=== PATIENT | female | born 1990 | race Caucasian/White ===

== ENCOUNTER → 2017-03-30 | Outpatient (CLI) | payer BC, MEDICAID ==
[~2017-03-30] MED LIST: ACHD5005 PO; DCS100C PO; DOCU100C37 PO; DOXY1TAB3 PO; HYDR-3812 PO; HYDR250V7 IM; IBUP-1773 PO; IRON150C3 PO; Ibuprofen PO; NFR150C PO; ONDA-42 PO; ONDA4TAB8 PO; ONDA8TAB9 PO; ONDAN4ODT PO; PREN1TAB14 PO; PRM25T PO; PROC10TA PO
--- NOTE | 2017-03-30 15:49 | Diagnostic Imaging Report ---
PROCEDURE: US abdomen complete. TECHNIQUE: Multiple Real-time grayscale images were obtained over the abdomen in various projections. INDICATION: Abdominal pain. Nausea and vomiting. FINDINGS: The visualized portions of the pancreas appear unremarkable. The liver is fairly homogeneous with no focal lesion seen. The CBD is 2 mm in caliber. The gallbladder demonstrates hyperechoic foci on its wall which demonstrates no shadowing and no mobility, suggestive of polyps measuring up to 3 mm in size. The right kidney is 11 and the left kidney is 10.8 cm in length. No hydronephrosis or focal lesion in either kidney is seen. The abdominal aorta is normal in caliber. The IVC appears unremarkable. The spleen is 10.5 cm in length, not enlarged. No significant fluid collection is seen in the abdomen. The sonographic Frost sign is reportedly negative. IMPRESSION: Gallbladder polyps measuring up to 3 mm in size are seen. Dictated by: Dictated on workstation # [id number]
== END ==
LOC: RAD 14:36
PROVIDERS: ATTEND Nurse Practitioner Family
DX: K82.4 Cholesterolosis of gallbladder (principal)
CPT/HCPCS: 76700

== ENCOUNTER 2017-04-21 11:17 | Day surgery (SDC) | payer BC, MEDICAID ==
[~2017-04-21] VITALS: Ht 177.8 cm; Wt 63.0 kg
[2017-04-21 11:20] VITALS: BP 121/71
[2017-04-21] MEDS ORDERED: ceFAZolin 1 GM/NS 50 ML IVPB IV ONE ×2 (11:30)
[2017-04-21 11:45] LABS: MEAN PLATELET VOLUME 8.3 FL (7.4-10.4); RED BLOOD COUNT 4.47 10^6/uL (4.35-5.85); WHITE BLOOD COUNT 6.1 10^3/uL (4.3-11.0)
--- NOTE | 2017-04-21 11:48 | Progress Note-Pre Operative ---
Pre-Operative Progress Note H&P Reviewed The H&P was reviewed, patient examined and no changes noted. Date Seen by Provider: Apr 21, 2017 Time Seen by Provider: 11:48 Date H&P Reviewed: Apr 21, 2017 Time H&P Reviewed: 11:48 Pre-Operative Diagnosis: gallbladder polyp ANGELIQUE LEDEZMA DO Apr 21, 2017 11:48
[2017-04-21] MEDS: LACTATED RINGERS 1,000 ML IV PRN ×2 (12:19→14:00)
[2017-04-21] MEDS ORDERED: LIDOCAINE 1% INJ 20 ML (XYLOCAINE) VIAL ONE (12:25)
[2017-04-21] MEDS ORDERED: BUPIVACAINE 0.25% 30 ML (SENSORCAINE) VIAL ONE (12:25)
[2017-04-21] MEDS ORDERED: proPOfol 200 MG/20 ML (DIPRIVAN) VIAL IV ONE (12:30)
[2017-04-21] MEDS ORDERED: ROCURONIUM 50 MG/5 ML (ZEMURON) VIAL IV ONE (12:30)
[2017-04-21] MEDS ORDERED: fentaNYL INJECTION 250 MCG/5 ML AMP ONE (12:30)
[2017-04-21] MEDS ORDERED: MIDAZOLAM 2 MG/2 ML (VERSED) VIAL ONE (12:30)
[2017-04-21] MEDS ORDERED: KETOROLAC 30 MG/ML VIAL ONE (13:40)
[2017-04-21] MEDS ORDERED: GLYCOPYRROLATE 0.2 MG/ML (ROBINUL) 2 ML VIAL ONE (13:40)
[2017-04-21] MEDS ORDERED: DEXAMETHASONE 10 MG/ML (DECADRON) 1 ML VIAL ONE (13:40)
[2017-04-21] MEDS ORDERED: SEVOFLURANE (ULTANE) 15 ML INHAL SOLN ONE ×4 (13:40→14:03)
[2017-04-21] MEDS ORDERED: ONDANSETRON 4 MG/2 ML (SDV) Z0FRAN ONE ×2 (13:40→14:13)
[2017-04-21] MEDS ORDERED: NEOSTIGMINE (BLOXIVERZ ) 1 MG/1ML 10 ML VIAL ONE (13:40)
--- NOTE | 2017-04-21 13:59 | Progress Note-Post Operative ---
Post-Operative Progess Note Surgeon (s)/Glory Hole Tender (s) Surgeon ANGELIQUE LEDEZMA DO Glory Hole Tender: Dr. Avilez Pre-Operative Diagnosis gallbladder polyp Post-Operative Diagnosis same Procedure & Operative Findings Date of Procedure 04/21/17 Procedure Performed/Findings lap [place] c IOC Anesthesia Type gen Estimated Blood Loss Estimated blood loss (mL): minimal Specimens/Packing Specimens Removed gallbladder ANGELIQUE LEDEZMA DO Apr 21, 2017 13:59
[2017-04-21] MEDS ORDERED: HYDR-3812 PO (14:01)
[2017-04-21] MEDS ORDERED: DOCU-143 PO (14:01)
--- NOTE | 2017-04-21 14:03 | Discharge Inst-Simple/Standard ---
Discharge Inst-Standard Discharge Medications New, Converted or Re-Newed RX: RX on Chart Patient Instructions/Follow Up Plan of Care/Instructions/FU: 2 weeks aide Activity as Tolerated: No Discharge Diet: Regular Diet Other Inst to Patient Follow up Appt: Make appointment for 2 weeks. Instructions: No lifting greater than 10 pounds. No strenuous activity. May shower in 24 hours, no tub bath or soaking. Use incentive spirometer at home as directed. No Smoking Skin/Wound Care: You have special glue over incisions it will fall off on its own. Symptoms to Report: Appetite Changes, Extremity Discoloration, Numbness/Tingling, Swelling Increased , Bleeding Excessive, Eyesight Changes, Pain Increased, Urine Color Change, Constipation(Persistent), Fever over 101 degree F, Pain/Pressure in chest, Urinating Difficulty, Cough Up/Vomit Blood, Heart Beat Irreg/Pounding, Pain/ Pressure in jaw, Vaginal Bleeding Increase, Cramps in feet or legs, Lightheadedness, Pain/Pressure in shoulder, Diarrhea(Persistent), Memory Changes Suddenly, Questions/Concerns, Weight gain consecutive days, Dizziness/ Fainting, Nausea/Vomiting, Shortness of Breath, Weight gain over 2 pounds. If eyes or skin turn yellow notify physician. If questions or concerns contact your physician Or seek help at emergency department. ANGELIQUE LEDEZMA DO Apr 21, 2017 14:03
[2017-04-21] MEDS ORDERED: HYDROmorphone (DILAUDID) 2 MG/ML VIAL ONE (14:09)
[2017-04-21] MEDS ORDERED: HYDROcodone/APAP 5 MG/325 MG (LORTAB) TAB PO PRN (14:15)
[2017-04-21] MEDS: HYDROmorphone (DILAUDID) 2 MG/ML VIAL IVP PRN ×2 (14:20→14:34)
[2017-04-21] MEDS ORDERED: PROMETHAZINE INJ 25 MG/ML (PHENERGAN) AMP ONE (14:25)
[2017-04-21] MEDS ORDERED: ONDANSETRON 4 MG/2 ML (SDV) Z0FRAN IVP PRN (14:30)
[2017-04-21] MEDS ORDERED: PROMETHAZINE INJ 25 MG/ML (PHENERGAN) AMP IVP PRN (14:45)
[2017-04-21 15:20] VITALS: BP 119/65
[2017-04-21 16:05] VITALS: BP 113/66
[2017-04-21 17:00] VITALS: BP 110/58
[2017-04-21 17:20] VITALS: BP 110/58
--- NOTE | 2017-04-21 21:23 | Diagnostic Imaging Report ---
Intraoperative cholangiogram. INDICATION: Cholecystectomy for abdominal pain Fluoroscopic time provided to the OR is 9 seconds. 2.5 cc of Omnipaque 300 is administered. FINDINGS: There is normal opacification of the CBD and most of the intrahepatic bile ducts. The posterior branch of the right hepatic lobe bile duct inserts into the left hepatic ducts. There is no obstruction with passage of contrast promptly into the duodenum with no filling defects or evidence of stones. IMPRESSION: No evidence of CBD stone or obstruction. Dictated by: Dictated on workstation # [id number]
--- NOTE | 2017-04-22 01:28 | OPERATIVE REPORT ---
DATE OF SERVICE: 04/21/2017 PREOPERATIVE DIAGNOSIS: Gallbladder polyp. POSTOPERATIVE DIAGNOSIS: Gallbladder polyp. PROCEDURE: Laparoscopic cholecystectomy with intraoperative cholangiogram. SURGEON: Angelique Deng DO. PHYSICAL TRAINER: Dr. Avilez, assisted in retraction, dissection and closure. ANESTHESIA: General. ESTIMATED BLOOD LOSS: Minimal. COMPLICATIONS: None. INDICATIONS: The patient is a 26-year-old female, who has been having abdominal pain, workup demonstrating a gallbladder polyp. The patient understands risks and benefits of procedure and wished to proceed with procedure. Consent was signed in the chart. DESCRIPTION OF PROCEDURE: The patient was taken to the operating suite. She was prepped and draped in sterile fashion. Surgical pause was performed. A 12 mm incision was made in the umbilicus. Cautery was used to dissect down to the fascia, which was then grasped, elevated and opened. A 0 Vicryl suture was placed in a idjfrf-an-fapdg fashion for closure at the end of the case. The balloon trocar was inserted in the abdomen and pneumoperitoneum was achieved. Under direct visualization with the laparoscope, a 5 mm trocar was placed in the subxiphoid region and two 5 mm trocars were placed in the right lower quadrant. The gallbladder was grasped and elevated. There were some adhesions down towards the neck of the gallbladder. These were able to be taken down easily. The cystic duct and cystic artery were then dissected out. The cystic duct was fairly short into the common bile duct. The common bile duct was able to be visualized. [place]'s were used to dissect around the cystic duct and cystic artery. A clip was placed on the distal portion of the cystic duct. The cystic duct was then partially transected and an arrow catheter was inserted into the duct and cholangiogram was performed. There were no filling defects. Contrast made its way into the duodenum without difficulty. The Arrow catheter was removed. Clips were placed on the proximal portion of the cystic duct and this was then completely transected. Clips were then placed on the proximal and distal portion of the cystic artery, a small branch which was also divided. There was another posterior branch that was present which clips were placed on the proximal portion and this was then cauterized through. The hook cautery was used to dissect the gallbladder from the gallbladder fossa achieving hemostasis. Once removed, this was placed in an Endobag and removed through the 12 mm trocar site. Copious amounts of irrigation used to irrigate the abdomen and suctioned. Hemostasis had been achieved. The abdomen was then desufflated, the trocars were removed. The fascial defect of the 12 mm trocar site was closed with the previously placed 0 Vicryl suture. The skin was then closed using a 4-0 Monocryl in a subcuticular fashion. The areas were then washed and dried and sterile bandage was applied. The patient tolerated procedure well without any complications. She was taken to recovery room in stable condition. Job ID: [id number] DocumentID: [id number] Dictated Date: 04/21/2017 15:30:52 Betting Clerk Date: 04/22/2017 01:27:31 Dictated By: ANGELIQUE DENG DO
== END 2017-04-21 17:20 | disposition home or self-care (01) ==
LOC: SDC 11:17
PROVIDERS: ATTEND Surgery
DX: K81.1 Chronic cholecystitis (principal)
CPT/HCPCS: 36415; 84703; 85027; 87081

== ENCOUNTER 2018-05-20 17:22 | Emergency (ER) | payer SELFPAY ==
[~2018-05-20] VITALS: Ht 177.8 cm; Wt 54.4 kg
[~2018-05-20 17:22] MED LIST changes: +DOCU-143 PO; -HYDR-3812 PO; -PROC10TA PO; +PROC10TA10 PO
--- OUTSIDE RECORDS SUMMARY | 2018-05-20 17:27 | XMS REPORT | Continuity of Care Document ---
Author Author [facility] Address Unknown Phone Unavailable Allergies Active Description Code Type Severity Reaction Onset Reported/Identified Relationship to Patient Clinical Status Yes Nitrous Oxide Drug Allergy N/ A N/A 04/24/2014 Medications There is no data. Problems Date Dx Coded Attending Type Code Diagnosis Diagnosed By 04/17/2014 DEX FRANK APRN 625.8 OTHER SPECIFIED SYMPTOMS ASSOCIATED WITH FEMALE GENITAL ORGANS 04/17/2014 DEX FRANK APRN 788.1 DYSURIA 04/17/2014 DEX FRANK APRN 625.8 OTHER SPECIFIED SYMPTOMS ASSOCIATED WITH FEMALE GENITAL ORGANS 04/17/2014 DEX FRANK APRN 788.1 DYSURIA 04/17/2014 DEX FRANK APRN A 625.8 OTHER SPECIFIED SYMPTOMS ASSOCIATED WITH FEMALE GENITAL ORGANS 04/17/2014 DEX FRANK APRN A 788.1 DYSURIA 07/25/2014 DEX FRANK APRN 783.21 LOSS OF WEIGHT 07/25/2014 DEX FRANK APRN V01.6 EXPOSURE TO VENEREAL DISEASES Procedures Code [place] [address] UA W/ CULTURE IF INDICATED 04/17/2014 20690 TEST, URINE (IN- HOUSE) 09/14/2014 44188 UA W/ CULTURE IF INDICATED 09/14/2014 Results There is no data. Encounters ACCT No. Visit Date/Time Discharge Status Pt. Type Provider Facility Loc./Unit Complaint [id number] 09/14/2014 11:02:00 09/14/2014 23:59:59 [facility] Outpatient DEX FRANK APRN [id number] 04/24/2014 08:30:00 04/24/2014 23:59:59 [facility] Outpatient DEX FRANK APRN [id number] 04/17/2014 17:14:00 04/17/2014 23:59:59 [facility] Outpatient DEX FRANK APRN
[2018-05-20] MEDS ORDERED: NS IV 1000 ML 1,000 ML IV SCH ×2 (17:30→19:45)
[2018-05-20] MEDS ORDERED: KETOROLAC 30 MG/ML VIAL IVP ONE (17:30)
[2018-05-20] MEDS ORDERED: ONDANSETRON 4 MG/2 ML (SDV) Z0FRAN IVP ONE (17:30)
--- NOTE | 2018-05-20 17:33 | ED Abdominal Pain ---
General Stated Complaint: ABD PAIN Source of Information: Patient Exam Limitations: No Limitations History of Present Illness Date Seen by Provider: May 20, 2018 Time Seen by Provider: 17:31 Initial Comments To ER with reports of periumbilical and left lower quadrant abdominal pain. She arrives to ER per private vehicle from [facility] where she presented with these complaints. She reports that she's been unable to urinate since yesterday morning because she doesn't have the urge to urinate but when she did she had noticed some burning on urination. Fevers up to 102 a few days prior to the pain onset but no fever for about 2-3 days. She's had quite a bit of nausea and vomiting but no diarrhea. Timing/Duration: 1-2 Days Severity/Quality: Moderate Location: LLQ, Periumbilical Radiation: No Radiation Activities at Onset: None Associated Symptoms: Fever/Chills, Nausea/Vomiting Allergies and Home Medications Allergies Coded Allergies: nitrous oxide (Verified Allergy, Unknown, 06/18/15) Home Medications Cephalexin 500 Mg Capsule, 500 MG PO TID Prescribed by: SHELLI HSEFFIELD on 05/20/18 2016 Patient Home Medication List Home Medication List Reviewed: Yes Review of Systems Review of Systems Constitutional: see HPI EENTM: No Symptoms Reported Respiratory: No Symptoms Reported Cardiovascular: No Symptoms Reported Gastrointestinal: See HPI, Abdominal Pain; Denies Diarrhea; Nausea, Vomiting Genitourinary: No Symptoms Reported Musculoskeletal: no symptoms reported Skin: no symptoms reported Psychiatric/Neurological: No Symptoms Reported Endocrine: No Symptoms Reported Past Khmhcdb-Jgyirb-Vzqjrf Hx Patient Social History Former Smoker, Quit: Jun 08, 2010 Recent Foreign Travel: No Contact w/Someone Who Travel: No Recent Hopitalizations: No Immunizations Up To Date Tetanus Booster (TDap): Unknown PED Vaccines UTD: Yes Date of Influenza Vaccine: Apr 08, 2012 Seasonal Allergies Seasonal Allergies: Yes Past Medical History Section Reproductive Disorders: Yes (HIGH RISK (DELIVERED AT 25 WEEKS)) Sexually Transmitted Disease: No HIV/AIDS: No Gall Bladder Disease Anxiety Adverse Reaction/Blood Tranf: No Physical Exam Vital Signs Vital Signs - First Documented 05/20/18 17:28 Temp 98.5 Pulse 69 Resp 18 B/P (MAP) 114/77 (89) Pulse Ox 100 Capillary Refill : Height/Weight/BMI Height: 5'10.00" Weight: 139lbs. 0.0oz. 63.567310wu; 19.9 BMI Method:Stated General Appearance: WD/WN, no apparent distress HEENT: PERRL/EOMI, normal ENT inspection Respiratory: normal breath sounds, no respiratory distress, no accessory muscle use Cardiovascular: regular rate, rhythm, no murmur Gastrointestinal: normal bowel sounds, soft, tenderness (left lower quadrant), other (no tenderness to the right lower quadrant) Extremities: normal range of motion, non-tender Back: No CVA tenderness (R), No CVA tenderness (L) Neurologic/Psychiatric: alert, normal mood/affect, oriented x 3 Skin: normal color, warm/dry Progress/Results/Core Measures Results/Orders Lab Results Laboratory Tests Test 05/20/18 17:45 05/20/18 19:49 Range/Units White Blood Count 5.5 4.3-11.0 10^3/uL Red Blood Count 4.27 L 4.35-5.85 10^6/uL Hemoglobin 11.4 L 11.5-16.0 G/DL Hematocrit 34 L 35-52 % Mean Corpuscular Volume 80 80-99 FL Mean Corpuscular Hemoglobin 27 25-34 PG Mean Corpuscular Hemoglobin Concent 33 32-36 G/DL Red Cell Distribution Width 13.9 10.0-14.5 % Platelet Count 259 130-400 10^3/uL Mean Platelet Volume 8.4 7.4-10.4 FL Neutrophils (%) (Auto) 77 H 42-75 % Lymphocytes (%) (Auto) 14 12-44 % Monocytes (%) (Auto) 9 0-12 % Eosinophils (%) (Auto) 0 0-10 % Basophils (%) (Auto) 0 0-10 % Neutrophils # (Auto) 4.2 1.8-7.8 X 10^3 Lymphocytes # (Auto) 0.8 L 1.0-4.0 X 10^3 Monocytes # (Auto) 0.5 0.0-1.0 X 10^3 Eosinophils # (Auto) 0.0 0.0-0.3 10^3/uL Basophils # (Auto) 0.0 0.0-0.1 10^3/uL Sodium Level 138 135-145 MMOL/L Potassium Level 3.7 3.6-5.0 MMOL/L Chloride Level 103 98-107 MMOL/L Carbon Dioxide Level 24 21-32 MMOL/L Anion Gap 11 5-14 MMOL/L Blood Urea Nitrogen 14 7-18 MG/DL Creatinine 0.81 0.60-1.30 MG/DL Estimat Glomerular Filtration Rate > 60 BUN/Creatinine Ratio 17 Glucose Level 97 70-105 MG/DL Calcium Level 9.1 8.5-10.1 MG/DL Corrected Calcium 8.8 8.5-10.1 MG/DL Total Bilirubin 1.2 H 0.1-1.0 MG/DL Aspartate Amino Transf (AST/SGOT) 16 5-34 U/L Alanine Aminotransferase (ALT/SGPT) 8 0-55 U/L Alkaline Phosphatase 45 40-136 U/L Total Protein 7.4 6.4-8.2 GM/DL Albumin 4.4 3.2-4.5 GM/DL Serum Test, Qualitative NEGATIVE NEGATIVE Urine Color YELLOW Urine Clarity CLEAR Urine pH 6.5 5-9 Urine Specific [place] 1.005 L 1.016-1.022 Urine Protein 3+ H NEGATIVE Urine Glucose (UA) NEGATIVE NEGATIVE Urine Ketones 3+ H NEGATIVE Urine Nitrite POSITIVE H NEGATIVE Urine Bilirubin 1+ H NEGATIVE Urine Urobilinogen 8 H NORMAL MG/DL Urine Leukocyte Esterase 1+ H NEGATIVE Urine RBC (Auto) 1+ H NEGATIVE Urine RBC NONE /HPF Urine WBC NONE /HPF Urine Squamous Epithelial Cells 10-25 H /HPF Urine Crystals NONE /LPF Urine Bacteria NONE /HPF Urine Casts NONE /LPF Urine Mucus NEGATIVE /LPF Urine Culture Indicated NO My Orders Orders - SHELLI SHEFFIELD APRN Cbc With Automated Diff (05/20/18 17:30) Comprehensive Metabolic Panel (05/20/18 17:30) Hcg,Qualitative Serum (05/20/18 17:30) Ua Culture If Indicated (05/20/18 17:30) Iv [place]ock-Insert (Order) (05/20/18 17:30) Ns Iv 1000 Ml (Sodium Chloride 0.9%) (05/20/18 17:30) Ondansetron Injection (Zofran Injectio (05/20/18 17:30) Ketorolac Injection (Toradol Injection) (05/20/18 17:30) Ct Abdomen/Pelvis W (05/20/18 17:33) Iohexol Injection (Omnipaque 350 Mg/Ml 1 (05/20/18 18:45) Ns (Ivpb) (Sodium Chloride 0.9% Ivpb Bag (05/20/18 18:45) Ns Iv 1000 Ml (Sodium Chloride 0.9%) (05/20/18 19:45) Cephalexin Capsule (Keflex Capsule) (05/20/18 20:30) Promethazine Injection (Phenergan Injec (05/20/18 20:30) Rx-Ondansetron Po (Rx-Zofran Po) (05/20/18 20:21) Medications Given in ED Current Medications Medications Dose Ordered Sig/Gerald Route Start Time Stop Time Status Last Admin Dose Admin Iohexol 100 ml ONCE ONCE IV 05/20/18 18:45 05/20/18 18:46 DC 05/20/18 18:35 100 ML Ketorolac Tromethamine 15 mg ONCE ONCE IVP 05/20/18 17:30 05/20/18 17:31 DC 05/20/18 17:54 15 MG Ondansetron HCl 8 mg ONCE ONCE IVP 05/20/18 17:30 05/20/18 17:31 DC 05/20/18 17:54 8 MG Sodium Chloride 100 ml ONCE ONCE IV 05/20/18 18:45 05/20/18 18:46 DC 05/20/18 18:35 80 ML Vital Signs/I&O 05/20/18 17:28 Temp 98.5 Pulse 69 Resp 18 B/P (MAP) 114/77 (89) Pulse Ox 100 Diagnostic Imaging Diagonstic Imaging: CT Comments NAME: HÉCTOR PAGAN [facility] REC#: [id number] PT STATUS: REG ER : 1990 PHYSICIAN: SHELLI SHEFFIELD APRN ADMIT DATE: 05/20/18/ER Draft Date of Exam:05/20/18 CT ABDOMEN/PELVIS W PROCEDURE: CT abdomen and pelvis with contrast. TECHNIQUE: Multiple contiguous axial images were obtained through the abdomen and pelvis after administration of intravenous contrast. INDICATION: Left lower quadrant pain with loss of appetite and vomiting for several days. COMPARISON: None. FINDINGS: The lung bases are clear. The heart is normal in size. There is no pericardial effusion. No focal liver lesions are seen. Cholecystectomy clips are present. The pancreas appears normal. The spleen is normal. The adrenal glands appear normal. The kidneys are unremarkable with no masses or hydronephrosis. The bowel loops are nondistended. The appendix is normal. There is no free air present. There is a small amount of free fluid in the pelvis. The urinary bladder wall appears mildly prominent, thought to be due to decompression. There are multiple mildly prominent follicles at the right ovary. No acute osseous abnormality is seen. There is transitional anatomy at the lumbosacral junction. IMPRESSION: Small amount of fluid in the pelvis. Multiple prominent follicles at the right ovary. Dictated on workstation # [id number] Dict: 05/20/18 [id number] Trans: 05/20/18 185 [id number] Interpreted by: PRINCE BRAVO MD Electronically signed by: Departure Communication (Admissions) 2021-Discussed labs with her. I discussed with her obtaining additional workup such as pelvic exam to evaluate for pelvic infection such as chlamydia or gonorrhea. She states this would be unlikely as she has been without sexual intercourse for over 4 months as her significant other is deployed. Discussed with is likely from a combination urinary tract infection and ruptured ovarian cyst given the free fluid found in the pelvis. Impression Primary Impression: LLQ abdominal pain Additional Impression: Urinary tract infection Disposition: 01 HOME, SELF-CARE Condition: Improved Departure-Patient Inst. Decision time for Depature: 20:15 Referrals: [facility] [place] (PCP/Family) Primary Care Physician Patient Instructions: Acute Abdomen (Belly Pain), Adult (DC) Add. Discharge Instructions: 1. Return to ER for any concerns 2. See your doctor next week 3. Medication as directed Scripts Cephalexin (Keflex) 500 Mg Capsule 500 MG PO TID, #15 CAP Prov: SHELLI SHEFFIELD SAFETY MANAGER 05/20/18 SHELLI SHEFFIELD SAFETY MANAGER May 20, 2018 17:33
[2018-05-20] MEDS ORDERED: SERT50TA2 PO (17:40)
[2018-05-20 17:52] LABS: BASOPHILS % (AUTO) 0 % (0-10); EOSINOPHILS % (AUTO) 0 % (0-10); HEMATOCRIT 34 % (35-52); HEMOGLOBIN 11.4 G/DL (11.5-16.0); LYMPHOCYTES # (AUTO) 0.8 X 10^3 (1.0-4.0); LYMPHOCYTES % (AUTO) 14 % (12-44); MEAN CORPUSCULAR HEMOGLOBIN 27 PG (25-34); MEAN CORPUSCULAR HGB CONC 33 G/DL (32-36); MEAN CORPUSCULAR VOLUME 80 FL (80-99); MEAN PLATELET VOLUME 8.4 FL (7.4-10.4); MONOCYTES # (AUTO) 0.5 X 10^3 (0.0-1.0); MONOCYTES % (AUTO) 9 % (0-12); NEUTROPHILS # (AUTO) 4.2 X 10^3 (1.8-7.8); NEUTROPHILS % (AUTO) 77 % (42-75); PLATELET COUNT 259 10^3/uL (130-400); RED BLOOD COUNT 4.27 10^6/uL (4.35-5.85); RED CELL DISTRIBUTION WIDTH 13.9 % (10.0-14.5); WHITE BLOOD COUNT 5.5 10^3/uL (4.3-11.0)
[2018-05-20 18:11] LABS: ALANINE AMINOTRANSFERASE 8 U/L (0-55); ALBUMIN 4.4 GM/DL (3.2-4.5); ALKALINE PHOSPHATASE 45 U/L (40-136); BILIRUBIN,TOTAL 1.2 MG/DL (0.1-1.0); BUN/CREATININE RATIO 17; CALCIUM 9.1 MG/DL (8.5-10.1); CARBON DIOXIDE 24 MMOL/L (21-32); CHLORIDE 103 MMOL/L (98-107); CREATININE SERUM 0.81 MG/DL (0.60-1.30); GFR ESTIMATED > 60; GLUCOSE 97 MG/DL (70-105); POTASSIUM 3.7 MMOL/L (3.6-5.0); SODIUM 138 MMOL/L (135-145); TOTAL PROTEIN 7.4 GM/DL (6.4-8.2)
[2018-05-20] MEDS ORDERED: IOHEXOL 350 MG/ML 100 ML (OMNIPAQUE 350) VIAL IV ONE (18:45)
[2018-05-20] MEDS ORDERED: NS 100 ML (IVPB) BAG IV ONE (18:45)
--- NOTE | 2018-05-20 18:52 | Diagnostic Imaging Report ---
PROCEDURE: CT abdomen and pelvis with contrast. TECHNIQUE: Multiple contiguous axial images were obtained through the abdomen and pelvis after administration of intravenous contrast. INDICATION: Left lower quadrant pain with loss of appetite and vomiting for several days. COMPARISON: None. FINDINGS: The lung bases are clear. The heart is normal in size. There is no pericardial effusion. No focal liver lesions are seen. Cholecystectomy clips are present. The pancreas appears normal. The spleen is normal. The adrenal glands appear normal. The kidneys are unremarkable with no masses or hydronephrosis. The bowel loops are nondistended. The appendix is normal. There is no free air present. There is a small amount of free fluid in the pelvis. The urinary bladder wall appears mildly prominent, thought to be due to decompression. There are multiple mildly prominent follicles at the right ovary. No acute osseous abnormality is seen. There is transitional anatomy at the lumbosacral junction. IMPRESSION: Small amount of fluid in the pelvis. Multiple prominent follicles at the right ovary. Dictated by: Dictated on workstation # [id number]
[2018-05-20 19:58] LABS: CLARITY,URINE CLEAR; COLOR,URINE YELLOW; GLUCOSE, URINE (UA) NEGATIVE (NEGATIVE); KETONES,URINE 3+ (NEGATIVE); LEUKOCYTE ESTERASE ,URINE 1+ (NEGATIVE); NITRITE,URINE POSITIVE (NEGATIVE); PH,URINE 6.5 (5-9); PROTEIN,URINE 3+ (NEGATIVE); UROBILINOGEN,URINE 8 MG/DL (NORMAL)
[2018-05-20 20:12] LABS: BILIRUBIN,URINE 1+ (NEGATIVE)
[2018-05-20] MEDS ORDERED: CEPH-507 PO (20:16)
[2018-05-20] MEDS ORDERED: RX-ONDANSETRON 4 MG ODT (ZOFRAN) PPK #4 PO STA (20:21)
[2018-05-20] MEDS ORDERED: CEPHALEXIN 250 MG (KEFLEX) CAP PO ONE (20:30)
[2018-05-20] MEDS ORDERED: PROMETHAZINE INJ 25 MG/ML (PHENERGAN) AMP IVP ONE (20:30)
[2018-05-20 20:35] VITALS: BP 114/77
== END 2018-05-20 20:39 | disposition home or self-care (01) ==
LOC: EDUNIT# 17:22 → ER 17:23
DX: N39.0 Urinary tract infection, site not specified (principal); F41.9 Anxiety disorder, unspecified; Z98.890 Other specified postprocedural states; Z88.8 Allergy status to other drugs, medicaments and biological substances; Z87.448 Personal history of other diseases of urinary system
CPT/HCPCS: 36415; 74177; 80053; 81000; 84703; 85025; 96374; 96375